=== PATIENT | female | born 1980 | race Caucasian/White ===

== ENCOUNTER 2016-09-19 12:34 | Emergency (ER) | payer OTHER ==
[2016-09-19 13:17] LABS: SPECIFIC GRAVITY 1.015 (1.001-1.030); URINE BILIRUBIN NEGATIVE (NEGATIVE); URINE BLOOD NEGATIVE (NEGATIVE); URINE GLUCOSE (UA) NEGATIVE (NEGATIVE); URINE LEUKOCYTE ESTERASE NEGATIVE (NEGATIVE); URINE NITRITE NEGATIVE (NEGATIVE); URINE PROTEIN NEGATIVE (NEGATIVE); URINE UROBILINOGEN NORMAL (0-1 mg/dl)
[2016-09-19] MEDS ORDERED: ACETAMINOPHEN 325 MG TABLET ONE (13:17)
[2016-09-19 13:19] LABS: URINE APPEARANCE CLEAR; URINE COLOR YELLOW
[2016-09-19] MEDS ORDERED: Oseltamivir Phosphate 75 MG CAP ONE (14:00)
--- NOTE | 2016-09-19 14:19 | US ---
FOLLOW-UP OB ULTRASOUND HISTORY: Bilateral lower quadrant pain, assess ovaries and viability. Limited transabdominal obstetric sonography performed. COMPARISON: None. FINDINGS: INTRAUTERINE GESTATION: Single live intrauterine gestation. PRESENTATION: Transverse, head maternal left. PLACENTA: Posterior without findings of placenta previa. CERVICAL LENGTH: 4.2cm. AMNIOTIC FLUID VOLUME: Subjectively normal. CARDIAC ACTIVITY: Present, 157 bpm. Trunk and limb motion was present. ANATOMIC SURVEY: Full anatomic survey not performed, appearance of the stomach, bladder, kidneys was grossly unremarkable. Three-vessel cord is noted. RIGHT OVARY 3.1 x 2.5 x 1.2 cm. LEFT OVARY 2.5 x 1.8 x 1.5 cm. OVARIAN BLOOD FLOW: Preserved. DOMINANT ADNEXAL LESION: None. IMPRESSION: 1. Single live intrauterine gestation in transverse head maternal left orientation. Biometry was not performed. 2. Posterior placenta without placenta previa, cervical length 4.2 cm. 3. Subjectively normal amniotic fluid volume. 4. No dominant adnexal lesion. Preserved ovarian blood flow. Results were electronically transmitted to the electronic medical record at 09/19/2016 at 1415 hours.
== END 2016-09-19 14:57 | disposition home or self-care (01) ==
LOC: ED 12:34
DX: J11.1 Influenza due to unidentified influenza virus with other respiratory manifestations (principal); Z79.899 Other long term (current) drug therapy
CPT/HCPCS: 81003; 87804; 76816; 99284; 99283; A9270 ×2